=== PATIENT | female | born 1935 | race Caucasian/White ===

== ENCOUNTER → 2016-12-12 | Outpatient (CLI) | payer MEDICARE, BC ==
[~2016-12-12] MED LIST: ACETAMINOPHEN500 MG PO; ACIPHEX20 MG PO; ADVIL 200MG TA200 MG PO; CYANOCOBAL1000 MCG/1; CYMBALTA 30MG30 MG PO; CYMBALTA30 MG PO; DIOVAN 160MG160 MG PO; DIOVAN160 MG PO; FISH OIL CONC1000 MG PO; FISH OIL1 IU PO; GABAPENTIN; NORVASC 5MG5 MG/TAB PO; PRAVACHOL 20MG20 MG PO; PRAVACHOL10 MG PO; PRAVASTATIN SOD10 MG PO; RANITIDINE HYD150 MG PO; VITAMIN B121000 MC2 SL; VITAMIN D PO; VITAMIN D1000 IU PO; ZANTAC 150150 MG PO
== END ==
LOC: COL.RAD 10:44
DX: K22.8 Other specified diseases of esophagus (principal)

== ENCOUNTER → 2017-05-01 | Outpatient (CLI) | payer MEDICARE, BC | LOC: COL.RAD 13:09 | DX: N28.89 Other specified disorders of kidney and ureter (principal); Z96.0 Presence of urogenital implants ==

== ENCOUNTER → 2017-06-26 | Outpatient (CLI) | payer MEDICARE, BC | LOC: MC.RAD 14:22 | DX: Z12.31 Encounter for screening mammogram for malignant neoplasm of breast (principal) ==

== ENCOUNTER → 2017-09-06 | Outpatient (CLI) | payer MEDICARE, BC | LOC: COL.RAD 13:51 | DX: E04.1 Nontoxic single thyroid nodule (principal); Z98.890 Other specified postprocedural states ==

== ENCOUNTER → 2018-07-24 | Outpatient (CLI) | payer MEDICARE, BC | LOC: MC.RAD 14:40 | DX: Z12.31 Encounter for screening mammogram for malignant neoplasm of breast (principal) ==

== ENCOUNTER 2018-09-24 13:30 | Outpatient (RCR) | payer MEDICARE, BC | END 2018-12-01 | disposition home or self-care (01) | LOC: WSPT | DX: M54.42 Lumbago with sciatica, left side (principal); M54.41 Lumbago with sciatica, right side; M53.3 Sacrococcygeal disorders, not elsewhere classified | CPT/HCPCS: G8978-GP; G8979-GP ==

== ENCOUNTER → 2018-11-26 | Outpatient (CLI) | payer MEDICARE, BC | LOC: COL.RAD 07:19 | DX: R10.31 Right lower quadrant pain (principal); R19.4 Change in bowel habit; Z90.710 Acquired absence of both cervix and uterus | CPT/HCPCS: Q9967 ==

== ENCOUNTER → 2019-01-07 | Outpatient (CLI) | payer MEDICARE, BC ==
[2019-01-07 15:06] LABS: BASO % 0.3 % (0.0-2.0); EOS # 0.1 (0.0-0.7); EOS % 1.5 % (0-4.0); GRAN # 6.7 (1.4-6.5); GRAN % 72.4 % (42.2-75.2); HEMATOCRIT 40.4 % (37.0-47.0); HEMOGLOBIN 13.2 g/dl (12.5-16.0); LYMPH # 1.8 (1.2-3.4); LYMPH % 18.9 % (20.0-51.0); MEAN CELL VOLUME 88 fl (80.0-100.0); MEAN CORPUSCULAR HEMOGLOBIN 29 pg (27.0-31.0); MEAN CORPUSCULAR HGB CONC 33 g/dl (33.0-37.0); MEAN PLATELET VOLUME 9.7 fl (7.4-10.4); MONO # 0.6 (0.1-0.6); MONO % 6.7 % (1.7-9.3); PLATELET COUNT 226 K/mm3 (130-400); RED BLOOD COUNT 4.57 M/mm3 (4.10-5.30); REDCELL DISTRIBUTION WIDTH-CV 13.2 % (11.5-14.5)
[2019-01-07 15:15] LABS: ALBUMIN 4.2 gm/dL (3.5-5.0); BILIRUBIN,TOTAL 0.5 mg/dL (0.0-1.0); CALCIUM 9.3 mg/dL (8.4-10.2); CREATININE, serum 0.86 mg/dL (0.52-1.25); TOTAL PROTEIN 7.1 gm/dL (6.4-8.2)
== END ==
LOC: COL.RAD 14:38
PROVIDERS: Family Medicine
DX: R30.0 Dysuria (principal); R10.31 Right lower quadrant pain
CPT/HCPCS: Q9967

== ENCOUNTER 2023-03-26 11:34 | Emergency (ER) | payer MEDICARE, BC ==
[~2023-03-26] VITALS: Ht 154.9 cm; Wt 65.9 kg
[2023-03-26 11:45] VITALS: TEMP 97.9
[2023-03-26 12:37] LABS: COLLECTION METHOD CATHETER
[2023-03-26 12:42] LABS: BASO % 0.4 % (0.0-2.0); EOS # 0.2 K/mm3 (0.0-0.7); EOS % 2.5 % (0.0-4.0); GRAN # 4.7 K/mm3 (1.4-6.5); GRAN % 70.2 % (42.2-75.2); HEMATOCRIT 41.6 % (37.0-47.0); HEMOGLOBIN 13.5 g/dl (12.5-16.0); LYMPH # 1.2 K/mm3 (1.2-3.4); LYMPH % 18.1 % (20.0-51.0); MEAN CELL VOLUME 91 fl (80.0-100.0); MEAN CORPUSCULAR HEMOGLOBIN 29 pg (27-31); MEAN CORPUSCULAR HGB CONC 33 g/dl (33.0-37.0); MONO # 0.6 K/mm3 (0.1-0.6); MONO % 8.4 % (1.7-9.3); PLATELET COUNT 225 K/mm3 (130-400); RED BLOOD COUNT 4.59 M/mm3 (4.10-5.30); REDCELL DISTRIBUTION WIDTH-CV 13.5 % (11.5-14.5)
[2023-03-26 12:50] LABS: MUCOUS Present (NOT PRESENT); SQUAMOUS EPITHELIAL None Seen /hpf (0-10); URINE BACTERIA None Seen /hpf (NONE SEEN); URINE RBC >50 /hpf (0-2)
[2023-03-26 12:52] LABS: URINE COLOR OTHER (YELLOW)
[2023-03-26 12:53] LABS: URINE APPEARANCE Cloudy (CLEAR/HAZY); URINE BLOOD 3+ (NEGATIVE); URINE GLUCOSE 1+ (NEGATIVE); URINE KETONE 1+ (NEGATIVE); URINE NITRATE Positive (NEGATIVE); URINE PROTEIN(semi-quant) 3+ (NEGATIVE)
[2023-03-26 12:59] LABS: ALBUMIN 4.1 gm/dL (3.4-4.8); BILIRUBIN,TOTAL 0.7 mg/dL (0.2-1.2); CALCIUM 9.5 mg/dL (8.4-10.2); CREATININE, serum 0.86 mg/dL (0.57-1.11); POTASSIUM 4.2 mmol/L (3.5-4.5); TOTAL PROTEIN 6.8 gm/dL (6.2-8.1)
[2023-03-26] MEDS ORDERED: LEVAQUIN 5500 MG/TA1 PO (14:30)
[2023-03-26 14:42] VITALS: BP 134/59; PULSE 78
== END 2023-03-26 15:46 | disposition home or self-care (01) ==
LOC: COL.ER 11:34
PROVIDERS: Personal Emergency Response Attendant
DX: R41.0 Disorientation, unspecified (principal); N39.0 Urinary tract infection, site not specified; Z20.822 Contact with and (suspected) exposure to COVID-19; Z88.1 Allergy status to other antibiotic agents
CPT/HCPCS: J0696